=== PATIENT | male | born 1950 | race Caucasian/White ===

== ENCOUNTER 2016-08-19 09:10 | Emergency (ER) | payer MEDICARE, OTHER ==
[~2016-08-19] VITALS: Ht 182.9 cm; Wt 94.5 kg
[~2016-08-19 09:10] MED LIST: CARB25TA12 PO; CLON1TAB PO; COLA100C3 PO; LORA-474 PO; OMEP20.6 PO; OXYC30TA62 PO; PAXI30TA7 PO; SENE8.6T PO; TRAZ50TA12 PO
[2016-08-19 09:25] VITALS: BP 154/83; PULSE 86; RESP 18; TEMP 98; O2SAT 93
[2016-08-19] MEDS ORDERED: VITA400C5 PO (09:48)
[2016-08-19] MEDS ORDERED: CLON1TAB PO (09:48)
[2016-08-19] MEDS ORDERED: RIVA4.6T T-DERMAL (09:48)
[2016-08-19] MEDS ORDERED: SERO50TA PO (09:48)
[2016-08-19] MEDS ORDERED: SERO100T PO (09:48)
[2016-08-19] MEDS ORDERED: MECL1TAB42 PO (09:48)
[2016-08-19] MEDS ORDERED: CARB25TA12 PO (09:48)
[2016-08-19] MEDS ORDERED: LORA-474 PO (09:48)
[2016-08-19] MEDS ORDERED: HYDR-3366 PO (09:48)
[2016-08-19] MEDS ORDERED: TRAZ50TA12 PO (09:48)
[2016-08-19] MEDS ORDERED: MAALSUS18 PO (09:48)
[2016-08-19] MEDS ORDERED: VITA500T4 PO (09:48)
[2016-08-19] MEDS ORDERED: SENE8.6T PO (09:48)
[2016-08-19] MEDS ORDERED: CARBIDOPA/LEVODOPA 25 MG/250 MG TAB PO ONE (10:00)
--- NOTE | 2016-08-19 10:06 | PD ---
HPI Chief Complaint: General Weakness Time Seen by Provider: 09:51 Travel History International Travel<30 days: No Contact w/Intl Traveler<30days: No Traveled to known affect area: No History of Present Illness HPI Patient with extensive past medical history and medications. Currently in a [facility]. Complaints this morning of general fatigue. Reports a past medical history primarily of Natalie Gehrig's disease and Parkinson's with severe anxiety and associated hypertension. States he had a bad night sleeping and he awoke with increased anxiety and fear of a left-sided stroke. Reports numbness and tingling without extremity weakness on the left side and drooling. Nursing was called and assessed the patient. No mention of stroke or left-sided weakness. They did state that he was incontinent of urine and stool. On exam patient was primarily concerned that he missed his 9:00 medications. States he feels as good as he would any other day, just woke up fearful this morning. Accompanied by significant other. 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 ) Allergies-Medications (Allergen,Severity, Reaction): Coded Allergies: Demerol (Verified Adverse Reaction, Severe, Nausea/Vomiting, 08/19/16) Reported Meds & Prescriptions Reported Meds & Active Scripts Active Reported E-400 (Vitamin E) 400 Unit Cap 2 Tab PO DAILY Meclizine 25 (Meclizine HCl) 25 Mg Tab 25 Mg PO Q8HR PRN Ativan (Lorazepam) 1 Mg Tab 1 Mg PO Q8H PRN Senexon-S 8.6-50 mg (Sennosides-Docusate Sodium) 1 Tab Tab 3 Tab PO BID Trazodone (Trazodone HCl) 50 Mg Tab 50 Mg PO HS Clonazepam 1 Mg Tab 1 Mg PO TID Carbidopa-Levodopa 25-250 Mg Tab 1.5 Tab PO TID Exelon Patch (Rivastigmine) 4.6 mg/24 hr Patch 1 Patch T-DERMAL DAILY Seroquel (Quetiapine Fumarate) 100 Mg Tab 100 Mg PO BID Seroquel (Quetiapine Fumarate) 50 Mg Tab 75 Mg PO DAILY Maalox Advanced Maximum Strength Liq (Ytywsjut-Muiookjln-Dfzfqhjhdha Liq) 400- 400-40 Mg/5 Ml Susp 15 Ml PO QID PRN Take between meals or as directed. Shake well. Maximum 60 ml/24 hrs. Vitamin B-12 (Cyanocobalamin) 500 Mcg Tab 500 Mcg PO DAILY [place] (Hydrocodone-Acetaminophen) 10-325 Mg Tab 1 Tab PO Q6H PRN Clonazepam 1 Mg Tab 1 Mg PO TID Colace (Docusate Sodium) 100 Mg Cap 100 Mg PO BID Review of Systems General / Constitutional: No: Fever Eyes: No: Visual changes HENT: No: Headaches Cardiovascular: No: Chest Pain or Discomfort Respiratory: No: Shortness of Breath Gastrointestinal: No: Abdominal Pain Genitourinary: No: Dysuria Musculoskeletal: No: Pain Skin: No Rash Neurologic: No: Weakness Psychiatric: No: Depression Endocrine: No: Polydipsia Hematologic/Lymphatic: No: Easy Bruising Physical Exam Narrative GENERAL: Well-nourished, well-developed patient. Answers questions appropriately, alert to person place and time SKIN: Warm and dry. HEAD: Normocephalic. EYES: No scleral icterus. No injection or drainage. NECK: Supple, trachea midline. No JVD or lymphadenopathy. CARDIOVASCULAR: Regular rate and rhythm without murmurs, gallops, or rubs. RESPIRATORY: Breath sounds equal bilaterally. No accessory muscle use. GASTROINTESTINAL: Abdomen soft, non-tender, nondistended. MUSCULOSKELETAL: No cyanosis, or edema. Decreased reflexes and strength bilateral lower extremities but equal. Equal upper extremity strength without facial asymmetry. BACK: Nontender without obvious deformity. No CVA tenderness. Data Data Last Documented VS Vital Signs Date Time Temp Pulse Resp B/P Pulse Ox O2 Delivery O2 Flow Rate FiO2 08/19/16 09:25 98.0 86 18 154/83 93 Orders Complete Blood Count With Diff (08/19/16 09:52) Comprehensive Metabolic Panel (08/19/16 09:52) Urinalysis - C+S If Indicated (08/19/16 09:52) Carbidopa-Levodopa 25-250 Mg (Sinemet 25 (08/19/16 10:00) Labs Laboratory Tests Test 08/19/16 10:25 White Blood Count 6.9 TH/MM3 Red Blood Count 5.33 MIL/MM3 Hemoglobin 15.3 GM/DL Hematocrit 45.3 % Mean Corpuscular Volume 84.8 FL Mean Corpuscular Hemoglobin 28.7 PG Mean Corpuscular Hemoglobin 33.9 % Concent Red Cell Distribution Width 12.5 % Platelet Count 209 TH/MM3 Mean Platelet Volume 6.8 FL Neutrophils (%) (Auto) 77.4 % Lymphocytes (%) (Auto) 16.9 % Monocytes (%) (Auto) 4.0 % Eosinophils (%) (Auto) 1.3 % Basophils (%) (Auto) 0.4 % Neutrophils # (Auto) 5.3 TH/MM3 Lymphocytes # (Auto) 1.2 TH/MM3 Monocytes # (Auto) 0.3 TH/MM3 Eosinophils # (Auto) 0.1 TH/MM3 Basophils # (Auto) 0.0 TH/MM3 CBC Comment DIFF FINAL Differential Comment Urine Collection Type CLEAN CATCH Urine Color YELLOW Urine Turbidity CLEAR Urine pH 8.0 Urine Specific [place] 1.017 Urine Protein NEG mg/dL Urine Glucose (UA) NEG mg/dL Urine Ketones TRACE mg/dL Urine Occult Blood NEG Urine Nitrite NEG Urine Bilirubin NEG Urine Leukocyte Esterase NEG Urine RBC 0-3 /hpf Urine Squamous Epithelial 0-5 /hpf Cells Urine Amorphous Sediment FEW Microscopic Urinalysis Comment CULT NOT INDICATED Urine Collection Time 10:25 Sodium Level 143 MEQ/L Potassium Level 4.2 MEQ/L Chloride Level 105 MEQ/L Carbon Dioxide Level 32.0 MEQ/L Anion Gap 6 MEQ/L Blood Urea Nitrogen 8 MG/DL Creatinine 0.74 MG/DL Estimat Glomerular Filtration 106 ML/MIN Rate Random Glucose 94 MG/DL Calcium Level 8.8 MG/DL Total Bilirubin 1.1 MG/DL Aspartate Amino Transf 9 U/L (AST/SGOT) Alanine Aminotransferase LESS THAN 6 U/L (ALT/SGPT) Alkaline Phosphatase 78 U/L Total Protein 7.1 GM/DL Albumin 3.7 GM/DL [facility] Medical Decision Making Medical Screen Exam Complete: Yes Emergency Medical Condition: Yes Differential Diagnosis Malaise, disease progression, anxiety, TIA Narrative Course Assessment and plan discussed with patient and significant other at bedside. 9: 00 carbidopa provided. Labs reviewed and within normal limits. Diagnosis Primary Impression: Anxiety about health Patient Instructions: General Instructions Additional Instructions: Encouraged to continue with specialists, encourage good hydration and nutrition , continue current medications, consider cognitive therapy for anxiety Transport back to previous care facility Med/Other Pt SpecificInfo: No Meds Exist/No RX given Disposition: 01 DISCHARGE HOME Condition: Good Miguel Wilkinson MD Aug 19, 2016 10:06
[2016-08-19 10:30] LABS: BLOOD, URINE NEG (NEG); GLUCOSE,URINE NEG (NEG); KETONE, URINE TRACE mg/dL (NEG); NITRITE,URINE NEG (NEG)
[2016-08-19 10:31] LABS: AUTOMATED NEUTROPHIL # 5.3 TH/MM3 (1.8-7.7); BASOPHIL % 0.4 % (0.0-2.0); EOSINOPHIL # 0.1 TH/MM3 (0-0.4); EOSINOPHIL % 1.3 % (0.0-4.0); HEMATOCRIT 45.3 % (39.0-51.0); HEMO FLAGS DIFF FINAL; LYMPH % 16.9 % (9.0-44.0); LYMPHOCYTE # 1.2 TH/MM3 (1.0-4.8); MEAN CELL VOLUME 84.8 FL (80.0-100.0); MEAN CORPUSCULAR HEMOGLOBIN 28.7 PG (27.0-34.0); MEAN CORPUSCULAR HGB CONC 33.9 % (32.0-36.0); NEUT % 77.4 % (16.0-70.0); PLATELET COUNT 209 TH/MM3 (150-450); RED BLOOD COUNT 5.33 MIL/MM3 (4.50-5.90); RED CELL DISTRIBUTION WIDTH 12.5 % (11.6-17.2); WHITE BLOOD COUNT 6.9 TH/MM3 (4.0-11.0)
[2016-08-19 10:38] LABS: METHOD OF COLLECTION CLEAN CATCH; URINE COLOR YELLOW (YELLW/STRAW)
[2016-08-19 10:40] LABS: COMMENT (UR) CULT NOT INDICATED; CULTURE IF INDICATED CULT NOT INDICATED; RBC, URINE 0-3 /hpf (0-3); SQUAMOUS EPITHELIAL CELL URINE 0-5 /hpf (0-5)
[2016-08-19 10:44] LABS: CHLORIDE 105 MEQ/L (98-107); POTASSIUM 4.2 MEQ/L (3.5-5.1); SODIUM (NA) 143 MEQ/L (136-145)
[2016-08-19 10:47] LABS: ANION GAP 6 MEQ/L (5-15)
[2016-08-19 10:48] LABS: BLOOD UREA NITROGEN 8 MG/DL (7-18)
[2016-08-19 10:50] LABS: ALT (GPT) LESS THAN 6 U/L (12-78)
[2016-08-19 10:51] LABS: AST (GOT) 9 U/L (15-37); GLOMERULAR FILTRATION RATE 106 ML/MIN (>89)
[2016-08-19 10:52] LABS: TOTAL BILIRUBIN ADULT 1.1 MG/DL (0.2-1.0)
[2016-08-19 10:53] LABS: ALKALINE PHOSPHATASE 78 U/L (45-117)
[2016-08-19 11:55] VITALS: BP 136/78
== END 2016-08-19 11:56 | disposition home or self-care (01) ==
LOC: PHED 09:50
DX: F41.8 Other specified anxiety disorders (principal); G12.21 Amyotrophic lateral sclerosis; G47.00 Insomnia, unspecified; I10 Essential (primary) hypertension; G20 Parkinson's disease; F03.90 Unspecified dementia, unspecified severity, without behavioral disturbance, psychotic disturbance, mood disturbance, and anxiety
CPT/HCPCS: 80053; 81001; 85025; 99284